=== PATIENT | female | born 1945 | race Two or more races ===

== ENCOUNTER → 2018-12-02 | Outpatient (CLI) | payer MEDICARE, OTHER ==
[~2018-12-02] MED LIST: IOPAMIDOL 370 MG/ML 200 ML INFUS..BTL INJ ONE; SODIUM CHLORIDE 0.9% 50ML 0 ML ONE; SODIUM CHLORIDE 0.9% 50ML 50 ML ONE
[2018-12-02 10:25] LABS: CREATININE, SERUM 0.96 mg/dL (0.57-1.11)
--- NOTE | 2018-12-02 11:26 | Diagnostic Imaging Report ---
EXAM: CT Chest WITH contrast INDICATION: Cough x 2 years. COMPARISON: None TECHNIQUE: Chest was scanned utilizing a multidetector helical scanner from the lung apex through the level of the adrenal glands without administration of IV contrast. Coronal and sagittal reformations were obtained. Routine protocol was performed. IV CONTRAST: 100 mL of Isovue-370. RADIATION DOSE: Total DLP: 414.3 mGy*cm Dose modulation, iterative reconstruction, and/or weight based adjustment of the mA/kV was utilized to reduce the radiation dose to as low as reasonably achievable. COMPLICATIONS: None FINDINGS: LINES/ TUBES: None. LUNGS AND AIRWAYS: There are extensive fibrotic changes of the bilateral lungs with traction bronchiectasis, bilateral interstitial and scattered ground glass opacities and honeycombing. Fibrotic changes are most pronounced in the bilateral lower lobes, lingula, and right upper lobe and are predominantly peripheral. Diffuse opacity limits evaluation for underlying lung nodule. There is a calcified granuloma in the right upper lobe. PLEURA: The pleural spaces are clear. HEART AND MEDIASTINUM: The thyroid gland is normal. There are prominent calcified mediastinal and hilar lymph nodes. For example, a 1.3 cm right peribronchial lymph node on series 2, image 42 with associated calcification. No cardiomegaly or pericardial effusion. Scattered coronary atherosclerosis. Atherosclerotic calcifications of the thoracic aorta and branch vessels. UPPER ABDOMEN: Limited contrast-enhanced views of the upper abdomen. Diffuse mild hepatic steatosis. Cholelithiasis without CT evidence of cholecystitis. There is mild thickening at the gastroesophageal junction. BONES: No acute osseous abnormality. No suspicious lytic or blastic lesions. Degenerative changes of the visualized spine. SOFT TISSUES: Unremarkable. IMPRESSION: Findings of fibrotic interstitial lung disease. Given extensive honeycombing, the differential includes UIP versus fibrotic NSIP. Follow-up interstitial lung disease protocol CT may be considered for further evaluation. Sequela of prior granulomatous disease. Indeterminate thickening at the gastroesophageal junction, with limited evaluation on this study. While this could represent esophagitis, underlying lesion is not excluded. Suggest correlation with clinical symptoms. Endoscopy may be considered for further evaluation. Diffuse mild hepatic steatosis. Cholelithiasis. Signed by: Dr. Toro Marsh MD on 12/02/2018 11:23 AM
== END ==
LOC: CT 09:23 → EDSEX 09:45
PROVIDERS: ATTEND Internal Medicine
DX: J84.9 Interstitial pulmonary disease, unspecified (principal)
CPT/HCPCS: 36415; 71260; 82565; 84520; Q9967

== ENCOUNTER → 2019-03-25 | Outpatient (CLI) | payer MEDICARE, OTHER ==
[~2019-03-25] MED LIST changes: -SODIUM CHLORIDE 0.9% 50ML 0 ML ONE
[2019-03-25 08:35] LABS: CREATININE, SERUM 1.17 mg/dL (0.57-1.11)
--- NOTE | 2019-03-25 11:42 | Diagnostic Imaging Report ---
CT BRAIN WOW HISTORY: Headache COMPARISON: None. TECHNIQUE: CT of the head was performed before and after the administration of intravenous contrast. Coronal/sagittal reformations were created. One or more of the following dose reduction techniques were used: Automated exposure control, adjustment of the mA and/or kV according to patient size, and/or utilization of iterative reconstruction technique. 50 mL of Isovue-370 were administered. DISCUSSION: Scalp/Skull: No abnormalities. Brain sulci: Mildly prominent. Ventricles: Mild compensatory dilatation. Extra-axial spaces: No masses or fluid collections. Mild carotid siphon calcifications are present. Parenchyma: No abnormal densities. No enhancing abnormalities. No mass, hemorrhage, or large vascular territory acute infarct. Dural sinuses: No abnormal densities. Sellar/Suprasellar region: Intact. Skull base: Intact. Incidental findings: The right frontal sinus and right frontonasal recess are opacified and subtly expanded. Mild hyperdensity within this opacification may be due to inspissated secretions. No gross local osseous destruction is seen. IMPRESSION: 1. No acute intracranial abnormalities. 2. Mild generalized cerebral volume loss. 3. Nonspecific right frontal sinus and right frontonasal recess opacification could be due to mucocele (right frontonasal recess obstruction). Signed by: Dr. Wilfrido Davis M.D. on 03/25/2019 11:39 AM
== END ==
LOC: CT 07:47
PROVIDERS: ATTEND Internal Medicine
DX: G44.209 Tension-type headache, unspecified, not intractable (principal)
CPT/HCPCS: 36415; 70470; 82565; 84520; Q9967